=== PATIENT | female | born 1965 | race Hispanic/Latino ===

== ENCOUNTER 2017-08-02 12:12 | Emergency (ER) | payer SELFPAY ==
[~2017-08-02] VITALS: Ht 152.4 cm; Wt 68.4 kg
[2017-08-02] MEDS ORDERED: PRILOSEC20 MG/CAP PO (12:52)
[2017-08-02 13:09] LABS: INFLUENZA A NONE DETECTED (NONE DETECT); INFLUENZA B POSITIVE (NONE DETECT)
[2017-08-02] MEDS ORDERED: DOXYCYC MONO100 M2 PO (13:12)
[2017-08-02] MEDS ORDERED: TAM75CAP PO (13:12)
[2017-08-02 13:45] VITALS: BP 110/72
== END 2017-08-02 13:45 | disposition home or self-care (01) | DRG 195 ==
LOC: ED 12:12
PROVIDERS: Family Medicine
DX: J10.1 Influenza due to other identified influenza virus with other respiratory manifestations (principal); R05 Cough; R50.9 Fever, unspecified

== ENCOUNTER 2020-03-10 21:12 | Emergency (ER) | payer SELFPAY ==
[~2020-03-10] VITALS: Ht 152.4 cm; Wt 76.0 kg
[~2020-03-10 21:12] MED LIST: DOXYCYC MONO100 M2 PO; PRILOSEC20 MG/CAP PO; TAM75CAP PO
[2020-03-10 21:59] LABS: HEMATOCRIT 33.4 % (37.0-47.0); HEMOGLOBIN 11.5 g/dl (12.0-16.0); IMMATURE GRANULOCYTES 0.2 % (0.0-5.0); MEAN CELL VOLUME 90.3 fL CALC (80.0-100.0); MEAN CORPUSCULAR HGB 31.1 pG CALC (26.0-32.0); MEAN CORPUSCULAR HGB CONC 34.4 g/dL CAL (32.0-36.0); NEUT# 3.39 thou/uL (2.00-7.15); RED BLOOD COUNT 3.7 mill/uL (4.20-5.60); RED CELL DISTRI WIDTH 11.8 % (11.5-15.5)
[2020-03-10 23:10] LABS: URINE BILIRUBIN - DIPSTICK NEGATIVE (NEGATIVE); URINE BLOOD DIPSTICK NEGATIVE (NEGATIVE); URINE COLOR YELLOW; URINE GLUCOSE - DIPSTICK NEGATIVE (NEGATIVE); URINE KETONE NEGATIVE (NEGATIVE); URINE LEUK ESTERASE NEGATIVE (NEGATIVE); URINE NITRITE - DIPSTICK NEGATIVE (Negative); URINE PROTEIN - DIPSTICK NEGATIVE (NEG-TRACE); URINE SPECIFIC GRAVITY <=1.005; URINE UROBILINOGEN - DIPSTICK 0.2 E.U./dL (0.2)
[2020-03-11 00:11] VITALS: BP 121/72
== END 2020-03-11 00:25 | disposition home or self-care (01) | DRG 880 ==
LOC: ED 21:12
PROVIDERS: Emergency Medicine
DX: F41.9 Anxiety disorder, unspecified (principal)